=== PATIENT | female | born 1985 | race Caucasian/White ===

== ENCOUNTER → 2016-12-31 | Outpatient (CLI) | payer OTHER ==
[~2016-12-31] VITALS: Ht 154.9 cm; Wt 83.5 kg
[~2016-12-31] MED LIST: BUPR1TAB17 PO; LIDOCAINE 2% INJ 100 MG/5 ML SDV (FOR ANES.) As Ordered ONE; NS 1,000 ML IV SCH; OMEP20CA3 PO; PROBCAP4 PO; PROPOFOL 200 MG/20 ML VIAL As Ordered ONE
--- NOTE | 2016-12-31 15:53 | ROOR ---
Patient Name: Pari Rodriguez Procedure Date: 12/31/2016 3:38 PM Date of : 1985 Age: 31 Room: [facility] Gender: Female Note Status: Finalized Procedure: Upper GI endoscopy Indications: Epigastric abdominal pain, Functional Dyspepsia, Abdominal distention Providers: Nitin NEVAREZ MD Referring MD: Katie Ruth NP Requesting Provider: Medicines: Monitored Anesthesia Care Complications: No immediate complications. Procedure: Pre-Anesthesia Assessment: - The heart rate, respiratory rate, oxygen saturations, blood pressure, adequacy of pulmonary ventilation, and response to care were monitored throughout the procedure. The Endoscope was introduced through the mouth, and advanced to the third part of duodenum. The upper GI endoscopy was accomplished without difficulty. The patient tolerated the procedure well. Findings: The examined esophagus was normal. Minimal inflammation was found in the gastric antrum. Biopsies were taken with a cold forceps for Helicobacter pylori testing. The examined duodenum was normal. Biopsies for histology were taken with a cold forceps for evaluation of celiac disease. Impression: - Normal esophagus. - Minimal Gastritis. Biopsied. - Normal examined duodenum. Biopsied. Recommendation: - Await pathology results. - Continue present medications. - Telephone endoscopist for pathology results in 2 weeks. Nitin Nevarez MD Nitin NEVAREZ MD 12/31/2016 3:52:54 PM This report has been signed electronically. Number of Addenda: 0 Note Initiated On: 12/31/2016 3:38 PM Estimated Blood Loss: Estimated blood loss: none.
--- NOTE | 2016-12-31 16:03 | ROOR ---
Patient Name: Pari Rodriguez Procedure Date: 12/31/2016 3:39 PM Date of : 1985 Age: 31 Room: [facility] Gender: Female Note Status: Finalized Procedure: Colonoscopy Indications: Abdominal pain in the left lower quadrant, Change in bowel habits, Constipation Providers: Nitin NEVAREZ MD Referring MD: Katie Ruth NP Requesting Provider: Medicines: Monitored Anesthesia Care Complications: No immediate complications. Procedure: Pre-Anesthesia Assessment: - The heart rate, respiratory rate, oxygen saturations, blood pressure, adequacy of pulmonary ventilation, and response to care were monitored throughout the procedure. The Colonoscope was introduced through the anus and advanced to 5 cm into the ileum. The colonoscopy was performed without difficulty. The patient tolerated the procedure well. The quality of the bowel preparation was excellent. Findings: The perianal and digital rectal examinations were normal. (Exam: Complete, Prep: Good or Excellent.) The terminal ileum appeared normal. The entire examined colon appeared normal on direct and retroflexion views. Impression: - The examined portion of the ileum was normal. - The entire colon is normal on direct and retroflexion views. - No specimens collected. Recommendation: - Miralax 1 capful (17 grams) in 8 ounces of water PO BID. Nitin Nevarez MD Nitin NEVAREZ MD 12/31/2016 4:02:49 PM This report has been signed electronically. Number of Addenda: 0 Note Initiated On: 12/31/2016 3:39 PM Estimated Blood Loss: Estimated blood loss: none.
[2016-12-31 16:25] VITALS: BP 135/89
== END | disposition home or self-care (01) ==
LOC: M OPP 12:33 → MERGE 13:55
PROVIDERS: ATTEND Internal Medicine Gastroenterology
DX: R10.32 Left lower quadrant pain (principal); R19.4 Change in bowel habit; K59.00 Constipation, unspecified; R10.13 Epigastric pain; K30 Functional dyspepsia; R14.0 Abdominal distension (gaseous); R11.0 Nausea; K29.70 Gastritis, unspecified, without bleeding; F41.9 Anxiety disorder, unspecified; K21.9 Gastro-esophageal reflux disease without esophagitis; Z79.899 Other long term (current) drug therapy